=== PATIENT | female | born 1985 | race Caucasian/White ===

== ENCOUNTER 2018-01-16 10:57 | Emergency (ER) | payer OTHER ==
[~2018-01-16] VITALS: Ht 165.1 cm; Wt 59.9 kg
[2018-01-16 11:02] VITALS: Ht 165.1 cm; Wt 59.9 kg
[2018-01-16 12:20] VITALS: BP 142/58
== END 2018-01-16 12:20 | disposition home or self-care (01) ==
LOC: ED 10:57
DX: B08.4 Enteroviral vesicular stomatitis with exanthem (principal)